=== PATIENT | male | born 1950 | race Caucasian/White ===

== ENCOUNTER 2021-12-27 13:28 | Outpatient (REF) | payer MEDICARE, SELFPAY ==
--- NOTE | ~2021-12-27 | XR_ITS ---
EXAMINATION: XR FOOT, LEFT CLINICAL INFORMATION: Pain, swelling and erythema over the bunion. COMPARISON: None TECHNIQUE: AP, lateral, and oblique views of the left foot. FINDINGS: Severe osteoarthrosis is present at the first metatarsophalangeal joint. Superimposed well-corticated bony protrusion is present arising from the head of the first metatarsal, may represent small osteochondroma. Note is made of significant soft tissue swelling overlying the dorsum and the first MTP joint. No evidence of any definite bony erosion to suspect underlying gout. The remainder of the visualized bones show satisfactory bony alignment and intact cortices and normal-appearing articular margins and joint space. Small posterior plantar calcaneal spur. XR/XR foot LT min 3V IMPRESSION: 1. Severe osteoarthrosis of the first MTP joint. 2. Well-corticated bony protrusion is present at the head of the first metatarsal, may represent a small osteochondroma. 3. Significant periarticular soft tissue swelling involving the dorsal as well as the medial aspect of the first MTP joint. 4. No evidence of any articular or subarticular eccentrically located erosion to suspect superimposed gout. However, possibility of gout involving the soft tissue is not excluded.
== END 2021-12-27 13:29 | disposition home or self-care (01) ==
LOC: HO.HMGCX 13:28
PROVIDERS: PCP Internal Medicine; Visit Provider Physician Assistant Medical
DX: S99.922D Unspecified injury of left foot, subsequent encounter (principal)
CPT/HCPCS: 73630